=== PATIENT | female | born 1980 | race African-American/Black ===

== ENCOUNTER 2018-07-30 08:02 | Outpatient (CLI) | payer OTHER, BC ==
[2018-07-30 17:24] LABS: Mean Corpuscular HGB CONC 32.2 g/dL (32.0-36.0); Mean Corpuscular Hemoglobin 28.7 pg (27.0-31.0); Mean Corpuscular Volume 89.2 fL (78.0-98.0); Mean Platelet Volume 7.8 fL (7.4-10.4); Platelet Count 298 thou/uL (130-400); RBC Distribution Width 10.9 % (11.5-14.5); Red Blood Cell (RBC) Count 4.52 mill/uL (4.20-5.40); White Blood Cell (WBC) Count 9.5 thou/uL (4.8-10.8)
[2018-07-30 18:05] LABS: BHCG - Serum Negative (NEGATIVE); Pregs Control Background? CLEAR/WHITE (CLR/WHITE); Pregs Control Bar Appear? YES (CONTROL BAR)
== END 2018-07-30 08:03 | disposition home or self-care (01) ==
LOC: LABBT 08:02
PROVIDERS: ATTEND Obstetrics & Gynecology
DX: Z01.812 Encounter for preprocedural laboratory examination (principal); N92.0 Excessive and frequent menstruation with regular cycle; D25.9 Leiomyoma of uterus, unspecified; R10.2 Pelvic and perineal pain; N94.6 Dysmenorrhea, unspecified
CPT/HCPCS: 84703; 85027; 86850; 86900; 86901

== ENCOUNTER 2018-07-30 16:15 | Inpatient (IN) | payer OTHER, BC ==
[2018-07-30 16:41] VITALS: BMI 29.5
[2018-08-05] MEDS ORDERED: CeleCOXIB 100 MG CAP ONE (08:48)
[2018-08-05] MEDS ORDERED: CEFAZOLIN 2 GM/50 ML BAG ONE (08:48)
[2018-08-05] MEDS ORDERED: Gabapentin 300 MG CAP ONE (08:48)
[2018-08-05] MEDS ORDERED: Famotidine/PF 20 mg/2ml Vial ONE (08:48)
[2018-08-05] MEDS ORDERED: Midazolam HCl 2 mg/2 ml Vial ONE ×2 (09:43→10:24)
--- NOTE | 2018-08-05 10:11 | HP ---
The patient is scheduled for surgery on 08/05/2018. HISTORY OF PRESENT ILLNESS: Ms. Nielson is a 38-year-old female, G4, P4, with tubal ligation. She has been having progressively having menstrual bleeding. She also has significant pelvic pain and discomfort along with severe menstrual cramping during her menstrual cycle. She had an ultrasound for evaluation of enlarged uterus noted on examination in March, which did show her to have uterine fibroids. No adnexal masses of the ovaries were noted. Endometrial biopsy was also performed during that visit, which was benign. She has been given a trial of Lysteda with nonsteroidals for the menorrhagia and she has had no improvement in her symptoms. She is desiring definitive surgical therapy. PAST MEDICAL HISTORY: Otherwise negative. PAST SURGICAL HISTORY: Tubal ligation, tonsillectomy, and Pap smear. Last Pap smear was in 2016, which was normal. FAMILY HISTORY: Significant for hypertension, hyperlipidemia, also diabetes in her mother. SOCIAL HISTORY: She is a nonsmoker. No excessive alcohol use. PHYSICAL EXAMINATION: VITAL SIGNS: Height 5 feet 4 inches. Blood pressure 118/78, weight 173, pulse 74 and regular, respiratory rate is 18. HEENT: Within normal limits. CHEST: Clear to auscultation. HEART: Regular rate and rhythm. S1 and S2 heart sounds. No murmurs, rubs, or gallops. ABDOMEN: Soft, nontender, nondistended with no palpable masses. PELVIC: Vulva and vagina had no lesions. There was no cystocele or rectocele noted. Uterus was 10-week size with a fundal fibroid. Adnexal were nontender with no masses. EXTREMITIES: Showed full range of motion. ASSESSMENT: This is a 38-year-old female G4, P4, with tubal ligation with symptomatic uterine fibroids including menorrhagia, pelvic pain, and dysmenorrhea. She has tried a course of Lysteda for menorrhagia along with nonsteroidals with minimal improvement in her symptoms. She is desiring definitive surgical therapy and planned for proceeding with surgery on August 05 with robotic assisted total laparoscopic hysterectomy and bilateral salpingectomy. If any abnormalities of ovaries are encountered at that time, then we would proceed with their removal with ovarian preservation is current plan. Job ID: [id number]
[2018-08-05] MEDS ORDERED: Fentanyl 100 MCG/2 ML VIAL ONE ×3 (10:15→13:48)
[2018-08-05] MEDS ORDERED: Bupivacaine HCl 0.5%/Epinephrine 1:200,000/PF 30 ml Vial ONE (10:16)
[2018-08-05] MEDS ORDERED: KETAMINE 100 MG/ML (5ML VIAL) ONE (10:16)
[2018-08-05] MEDS ORDERED: Promethazine HCl 25 MG/ML VIAL ONE (14:14)
[2018-08-05] MEDS ORDERED: PROPOFOL 200 MG/20 ML VIAL ONE (15:06)
[2018-08-05] MEDS ORDERED: Ketorolac Tromethamine 30 MG/ML VIAL ONE (15:06)
[2018-08-05] MEDS ORDERED: Lidocaine 1% PF 5 ML VIAL ONE (15:06)
[2018-08-05] MEDS ORDERED: Glycopyrrolate 0.2 MG/ML 5 ML SYRINGE ONE (15:06)
[2018-08-05] MEDS ORDERED: Ondansetron PF 4 MG/2 ML Vial ONE (15:06)
[2018-08-05] MEDS ORDERED: Dexamethasone 20 MG/5 ML VIAL ONE (15:06)
[2018-08-05] MEDS ORDERED: Rocuronium Bromide 10 MG/ML (10ML VIAL) ONE (15:06)
[2018-08-05] MEDS ORDERED: Zolpidem Tartrate 5 MG TAB PO PRN (15:52)
[2018-08-05] MEDS ORDERED: Simethicone Chewable 80 MG TAB PO PRN (15:52)
[2018-08-05] MEDS ORDERED: Bisacodyl 10 MG SUPP PR PRN (15:52)
[2018-08-05] MEDS ORDERED: Morphine 4 MG/ML VIAL SLOW IVP PRN (15:52)
[2018-08-05] MEDS ORDERED: Ondansetron PF 4 MG/2 ML Vial IVP PRN (15:52)
[2018-08-05] MEDS ORDERED: traMADol HCl 50 MG TAB PO PRN (15:52)
[2018-08-05] MEDS ORDERED: Promethazine HCl 25 MG/ML VIAL IM PRN (15:52)
[2018-08-05] MEDS ORDERED: diphenhydrAMINE 25 MG CAP PO PRN (15:52)
--- NOTE | 2018-08-05 18:27 | OP ---
DATE OF PROCEDURE: 08/05/2018 PREOPERATIVE DIAGNOSES: 1. A 38-year-old female with a previous tubal ligation with 10-week symptomatic uterine fibroids. 2. Menorrhagia and dysmenorrhea, unresponsive to medical management trial. 3. Pelvic pain. POSTOPERATIVE DIAGNOSES: 1. A 38-year-old female with a previous tubal ligation with 10-week symptomatic uterine fibroids. 2. Menorrhagia and dysmenorrhea, unresponsive to medical management trial. 3. Pelvic pain. PROCEDURES PERFORMED: Robotic total laparoscopic hysterectomy and bilateral salpingectomy. FIREWORKS MAKER SURGEON: Neel Villanueva DO, MS ANESTHESIA: General endotracheal. ESTIMATED BLOOD LOSS: 50 mL. COMPLICATIONS: None. COUNTS: Correct x2. ANTIBIOTICS: 2 g Ancef, on-call to OR. FINDINGS: 1. Uterus 10-week size with multiple small uterine leiomyomata. 2. Normal bilateral ovaries. 3. Normal fallopian tubes with left fallopian tube mid segment. The remaining was somewhat encapsulated in the appendices epiploicae of the sigmoid colon. Therefore, it has remained in-situ and distal salpingectomy performed. 4. Clear urine present in Rodriguez catheter postprocedure with a bladder being watertight to distention over 300 mL postprocedure. 5. Bilateral ureteral peristalsis visualized postprocedure. DISPOSITION: Recovery room in table. DESCRIPTION OF PROCEDURE: The patient previously received informed consent in regard to surgery. She was taken back to the operating room, where she received a general endotracheal anesthetic agent without complications. She was placed in the dorsal lithotomy position with the use of Robin stirrups and prepped and draped in usual sterile fashion. Rodriguez catheter was then placed. Side-arm speculum was placed in vagina. Anterior lip of the cervix was grasped with single-tooth tenaculum and the uterus sounded to 10 cm. A size 10 cm DELMY uterine manipulator with a 4.0 cm cervical cup was placed in usual fashion. Tenaculum and vaginal speculum were then removed. Attention was then turned to the abdomen, where perspective trocar sites were infiltrated with 0.5% Marcaine with epinephrine. A 12 mm supraumbilical incision was made. Veress needle was entered in the peritoneal cavity and the patient's pressure was noted to be less than 5 mm. The abdomen was insufflated with the patient's pressure of 15 approximately 4.5 L of carbon dioxide gas. At this time, a 12 mm trocar was placed through the supraumbilical incision. The laparoscope was introduced through the trocar sleeve confirming proper entry. Additional bilateral lower quadrant 8 mm trocars were placed under laparoscopic guidance along with the right upper quadrant 11 mm content assistant port. The patient was put in the steep Trendelenburg position and then the robot was docked in usual fashion. I then proceeded to carry out the procedure from the operative console while my assistants remained at the bedside. The uterus was elevated from the pelvis by my content assistant with the uterine manipulator and the left adnexal structures were visualized. The left tube was essentially capsulated in the appendices epiploicae adhesions and therefore proceeded to coagulate the left utero-ovarian ligament complex. This was coagulated with bipolar fenestrated cautery and transected with monopolar scissors. Serial coagulation of the broad ligament hugging close to the uterus was carried out to the left round ligament was reached. It was coagulated and then it was transected with monopolar scissors. The anterior leaf of the broad ligament was entered. The vesicouterine peritoneum was then incised, dropping the bladder, past the cervical vaginal angle in a layering technique in both sharp and blunt dissection. The left uterine vessels were skeletonized and they were coagulated at the internal cervical os region. The right adnexal structure was identified. The right fallopian tube was grasped by my content assistant at the fimbria with atraumatic grasper. The medial salpinx of the right fallopian tube was then incised and coagulated with monopolar scissors. The fallopian tube was then removed and then through the right upper quadrant content assistant port. The right utero-ovarian ligament was then coagulated, and transected. Serial coagulation of the broad ligament structures hugging close to the uterus was carried out to the right round ligament was reached. It was coagulated transected with monopolar scissors and then the anterior leaf again of the broad ligament was entered, dissecting the vesicouterine peritoneum in the layering technique and the bladder past the cervical vaginal angle in atraumatic fashion. The bladder was intermittently distended during this confirming proper identification of the tissue planes and also integrity of the bladder itself. The right uterine vessels again were then skeletonized at the internal cervical os region in a layering technique deflecting the uterus away from the pelvic sidewall by my assistants. Once this had been accomplished, the anterior colpotomy was then created starting at the 12 o'clock to 3 o'clock and position 12 to 9 o'clock position respectively. The uterine vessels here again were coagulated starting with side of the cervical cup. The posterior colpotomy was completed starting from 6 to 9 and 6 to 3 o'clock. The specimen was then delivered into the vaginal vault. The vaginal cuff was made hemostatic by grasping this with bipolar fenestrated cautery and the monopolar scissors had been exchanged with the needle batch mixing truck driver. The cuff was run around in a circumferential direction coagulating any bleeding areas. Uterine vessels again were coagulated at bilateral angles due to some oozing. Hemostasis was achieved. A Stratafix suture was then brought in by my content assistant and then the vaginal cuff was closed starting the right angle and full-thickness towards the left angle back towards the midline. The suture and needle were removed intact. The pelvis was irrigated. The pedicle sites were inspected. Hemostasis was confirmed. We did note that there was a defect somewhat in the left vaginal angle. An additional Stratafix suture was brought in and 2 throws were then placed in the left vaginal angle, incorporating some of the peritoneum for hemostasis purposes and the cuff was then closed clearing the defect. Pelvis again was irrigated and suctioned. Hemostasis confirmed. The bladder was draining clear urine. The bladder was watertight to distention. Bilateral ureteral peristalsis was visualized on the pelvic sidewalls bilaterally. The suture needle had been removed intact. The robot was then undocked. The excess carbon dioxide gas was released through the trocar sleeve. The trocar sites were closed with subcuticular 4-0 Monocryl for the skin closure and a deep stitch of 0 Vicryl had been placed in the supraumbilical defect of the fascia in [id number] stitch fashion. The patient was awakened from anesthesia and transferred to recovery room in stable condition. Job ID: [id number]
[2018-08-05] MEDS: Ketorolac Tromethamine 30 MG/ML VIAL IVP SCH (18:36)
[2018-08-05] MEDS: Acetaminophen 1,000 MG in Premix Bag 1 BAG IVPB SCH (18:37)
[2018-08-05] MEDS: Lactated Ringer's 1,000 ML IV SCH ×2 (19:50→21:04)
[2018-08-05] MEDS: traMADol HCl 50 MG TAB PO PRN (21:50)
[2018-08-06] MEDS: Acetaminophen 1,000 MG in Premix Bag 1 BAG IVPB SCH ×2 (00:16→05:38)
[2018-08-06] MEDS: Ketorolac Tromethamine 30 MG/ML VIAL IVP SCH ×2 (00:16→05:38)
[2018-08-06 06:34] LABS: Hemoglobin 11.3 g/dL (12.0-16.0); Mean Corpuscular HGB CONC 31.1 g/dL (32.0-36.0); Mean Corpuscular Hemoglobin 27.5 pg (27.0-31.0); Mean Corpuscular Volume 88.3 fL (78.0-98.0); Mean Platelet Volume 7.8 fL (7.4-10.4); Platelet Count 265 thou/uL (130-400); RBC Distribution Width 10.7 % (11.5-14.5); Red Blood Cell (RBC) Count 4.13 mill/uL (4.20-5.40); White Blood Cell (WBC) Count 13.3 thou/uL (4.8-10.8)
[2018-08-06 08:05] VITALS: BP 159/72; TEMP 98.7
[2018-08-06] MEDS: traMADol HCl 50 MG TAB PO PRN (10:19)
--- NOTE | 2018-08-06 21:38 | DIS ---
DATE OF ADMISSION: 08/05/2018 DATE OF DISCHARGE: 08/06/2018 DIAGNOSES: 1. Symptomatic 10-week uterine fibroids. 2. Menorrhagia, dysmenorrhea and pelvic pain. PROCEDURES PERFORMED: Robotic total laparoscopic hysterectomy with bilateral salpingectomy. SUMMARY OF HOSPITAL COURSE: Ms. Garcia is a 38-year-old -[place] female, who has had persistent menorrhagia and dysmenorrhea and pelvic pain due to uterine fibroids despite medical management trials. She desired definitive surgical therapy and underwent an uncomplicated robotic total laparoscopic hysterectomy, bilateral salpingectomy on 08/05/2018. Postoperatively, the patient has done well. Vital signs remained stable and her postoperative day one hematocrit was 36%. She is ambulating and voiding without difficulty and tolerating a regular diet prior to discharge home. DISCHARGE MEDICATIONS: 1. Hrtr-yiw-gtednae ibuprofen 400 mg q.4 hours as needed for pain. 2. Tramadol 50 mg q.6 hours p.r.n. pain. FOLLOWUP: She has a followup in 2 and 6 weeks postoperatively and pathology is pending at the time of dictation. Job ID: [id number]
[2018-08-10] MEDS ORDERED: Ibuprofen 800 MG TAB PO SCH (21:00)
== END 2018-08-06 10:20 | disposition home or self-care (01) | DRG 743 ==
LOC: SURG A 08-05 08:15 → 3SE 08-05 14:14 → EEVIPCON 08-05 16:15
PROVIDERS: ADMIT Obstetrics & Gynecology; ATTEND Obstetrics & Gynecology
PROC: 0UT94ZZ Resection of Uterus, Percutaneous Endoscopic Approach (ICD-10-PCS; principal; 2018-08-05)
PROC: 0UT74ZZ Resection of Bilateral Fallopian Tubes, Percutaneous Endoscopic Approach (ICD-10-PCS; 2018-08-05)
PROC: 8E0W4CZ Robotic Assisted Procedure of Trunk Region, Percutaneous Endoscopic Approach (ICD-10-PCS; 2018-08-05)
DX: D25.9 Leiomyoma of uterus, unspecified (principal); N92.0 Excessive and frequent menstruation with regular cycle; N94.6 Dysmenorrhea, unspecified; Z98.51 Tubal ligation status; Z90.89 Acquired absence of other organs
CPT/HCPCS: 36415; 85027; 88307; J0131; J0670; J1100; J1885; J2001; J2250; J2270; J2405; J2550; J2704; J3010; S0028